=== PATIENT | male | born 2000 | race Caucasian/White ===

== ENCOUNTER 2020-01-22 03:39 | Emergency (ER) | payer SELFPAY ==
[2020-01-22] MEDS ORDERED: NORMAL SALINE 1000 ML 1,000 ML IV ONE (04:50)
[2020-01-22] MEDS ORDERED: ONDANSETRON HCL INJ/PF 4 MG/2 ML SDV IV ONE (04:50)
--- NOTE | 2020-01-22 04:53 | ER Document Report ---
ED General - General Chief Complaint: ETOH Abuse Stated Complaint: ETOH Time Seen by Provider: 01/22/20 04:23 Mode of Arrival: Ambulatory Information source: Patient Notes: 19-year-old male with no previous medical problems presents to the emergency room after slipping in the bathroom on his vomit hitting his head on the edge of the toilet with questionable loss of consciousness. Patient states he had an argument with his ex-boyfriend was drinking at his brother's house when he started vomiting. Unknown amount of alcohol. Denies any suicidal homicidal ideation. States he got in a fight with his brother as well because his brother told him he is now older than to be drinking. States he rarely drinks any alcohol. Does not know what he was drinking. Complaining of a headache with nausea and vomiting. TRAVEL OUTSIDE OF THE [place] IN LAST 30 DAYS: No - Related Data Allergies/Adverse Reactions: aloe Allergy (Verified 01/22/20 04:05) Past Medical History - General Information source: Patient - Social History Smoking Status: Never Smoker Frequency of alcohol use: Occasional Drug Abuse: None Family History: Reviewed & Not Pertinent Patient has homicidal ideation: No Psychiatric Medical History: Reports: Hx Bipolar Disorder Past Surgical History: Reports: Hx Oral Surgery, Hx Orthopedic Surgery - hand Review of Systems - Review of Systems Constitutional: No symptoms reported EENT: No symptoms reported Cardiovascular: No symptoms reported Respiratory: No symptoms reported Gastrointestinal: Nausea, Vomiting. denies: Abdominal pain, Diarrhea Musculoskeletal: No symptoms reported Skin: No symptoms reported Neurological/Psychological: Headaches -: Yes All other systems reviewed and negative Physical Exam - Vital signs Vitals: Temp Pulse Resp BP Pulse Ox 97.8 F 102 H 18 118/74 98 01/22/20 03:46 01/22/20 03:46 01/22/20 03:46 01/22/20 03:46 01/22/20 03:46 - General General appearance: Appears well, Alert In distress: Mild - HEENT Head: Normocephalic, Other - Small hematoma to the right lateral aspect of the head.. No: Mcmullen's sign, Racoon's eyes Eyes: Normal Conjunctiva: Normal Pupils: PERRL Ears: Normal External canal: Normal Sinus: Normal Nasal: Normal Mucous membranes: Normal Pharynx: Normal Neck: Normal - Respiratory Respiratory status: No respiratory distress Chest status: Nontender Breath sounds: Normal Chest palpation: Normal - Cardiovascular Rhythm: Tachycardia Heart sounds: Normal auscultation Murmur: No Gallop: None auscultated - Abdominal Inspection: Normal Distension: No distension Bowel sounds: Normal Tenderness: Nontender Organomegaly: No organomegaly - Neurological Neuro grossly intact: Yes Cognition: Normal Orientation: AAOx4 [place] Coma Scale Eye Opening: Spontaneous [place] Coma Scale Verbal: Oriented [place] Coma Scale Motor: Obeys Commands [place] Coma Scale Total: 15 Speech: Normal Motor strength normal: LUE, RUE, LLE, RLE Sensory: Normal - Skin Skin Temperature: Warm Skin Moisture: Dry Skin Color: Normal Course - Re-evaluation Re-evalutation: 01/22/2020 05:15 Presentation of head trauma in an otherwise well-appearing patient. No focal neurologic deficits on exam, no evidence of basilar skull fracture on exam without evidence of hemotympanum, raccoon eyes, or periauricular hematoma. No papilledema. Patient is not on anticoagulation. GCS is 15. There was positive of consciousness. Multiple episodes of vomiting. Patient is therefore positive via [place]oan head CT criteria and CT imaging will be obtained at this time. 01/22/20 06:36 Patient is resting comfortably. He is able to tolerate p.o. fluids. Denies pain. Reviewed lab and CT results with patient and family. Counseled to rest at home today, drink plenty of fluids today. Zofran as needed for nausea. Outpatient follow-up with a primary care physician if not improving in 2 to 3 days. You have been provided with an on-call physician. Patient was given strict return to the emergency room guidelines. Return for any new or worsening symptoms. All questions were answered. Patient verbalized understanding and agrees with plan of care. 01/22/20 06:59 - Vital Signs Vital signs: Temp Pulse Resp BP Pulse Ox 98.5 F 68 14 110/64 100 01/22/20 06:46 01/22/20 06:46 01/22/20 06:46 01/22/20 06:46 01/22/20 06:46 - Laboratory Result Diagrams: 01/22/20 05:15 01/22/20 05:15 Laboratory results interpreted by me: 01/22/20 05:15 Salicylates < 1.0 L Acetaminophen < 10 L - Diagnostic Test Radiology reviewed: Reports reviewed Discharge - Discharge Clinical Impression: ETOH abuse Head injury Qualifiers: Encounter type: initial encounter Qualified Code(s): S09.90XA - Unspecified injury of head, initial encounter Nausea and vomiting Qualifiers: Vomiting type: unspecified Vomiting Intractability: non-intractable Qualified Code(s): R11.2 - Nausea with vomiting, unspecified Condition: Stable Disposition: HOME, SELF-CARE Instructions: Acute Alcohol Intoxication ([facility]), Antinausea Medication ([facility]), Head Injury Precautions ([facility]), Vomiting ([facility]) Additional Instructions: Home and rest the remainder of today. Tylenol as needed for pain. Zofran as needed for nausea. Drink plenty of water. Outpatient follow-up with her primary care physician if not improving in 2 to 3 days. Return to the emergency room for any new or worsening symptoms.
[2020-01-22 05:41] LABS: ABSOLUTE LYMPHOCYTES (AUTO) 2.1 10^3/uL (0.5-4.7); ABSOLUTE MONOCYTES (AUTO) 0.4 10^3/uL (0.1-1.4); ABSOLUTE NEUT (AUTO) 2.8 10^3/uL (1.7-8.2); BASOPHILS % (AUTO) 0.7 % (0-2); EOSINOPHILS % (AUTO) 0.7 % (0-6); HEMOGLOBIN 15.4 g/dL (13.5-17.0); LYMPHOCYTES % (AUTO) 39.7 % (13-45); MEAN CORPUSCULAR HEMOGLOBIN 30.1 pg (27.0-33.4); MEAN CORPUSCULAR HGB CONC 35.7 g/dL (32.0-36.0); MEAN CORPUSCULAR VOLUME 84 fl (80-97); MONOCYTES % (AUTO) 6.8 % (3-13); PLATELET COUNT 187 10^3/uL (150-450); RED CELL DISTRIBUTION WIDTH 12.9 % (11.5-14.0); SEGMENTED NEUTROPHILS % (AUTO) 52.1 % (42-78); TOTAL CELLS COUNTED % (AUTO) 100 %; WHITE BLOOD COUNT 5.3 10^3/uL (4.0-10.5)
--- NOTE | 2020-01-22 05:44 | RADIOLOGY REPORT (SQ) ---
CLINICAL HISTORY: trauma COMPARISON: None. TECHNIQUE: CT HEAD WITHOUT IV CONTRAST on 01/22/2020 4:48 AM CDT This exam was performed according to our departmental dose-optimization program, which includes automated exposure control, adjustment of the mA and/or kV according to patient size and/or use of iterative reconstruction technique. FINDINGS: There is no acute hemorrhage, mass effect or midline shift. Renee-white differentiation is preserved. There is no hydrocephalus. There is no significant volume loss for age. The calvarium is intact. Orbits and globes are unremarkable. The paranasal sinuses are clear. Mastoid air cells are clear. IMPRESSION: No acute intracranial findings.
--- NOTE | 2020-01-22 05:44 | RADIOLOGY REPORT (SQ) ---
EXAM DESCRIPTION: CT CERVICAL SPINE WITHOUT IV CONTRAST COMPLETED DATE/TME: 01/22/2020 04:49 CLINICAL HISTORY: 19 years, Male, trauma COMPARISON: None. TECHNIQUE: Axial CT images of the cervical spine were obtained without contrast. Sagittal and coronal reformats were performed. DLP 201 Images stored on PACS. All CT scanners at this facility use dose modulation, iterative reconstruction, and/or weight based dosing when appropriate to reduce radiation dose to as low as reasonably achievable (ALARA). [facility]: Dose Right [facility]: CareDose [facility]: Dose Right [facility]: Teradose 4D [facility]: [employer] LIMITATIONS: None. FINDINGS: The alignment of the cervical spine is satisfactory. There is no acute fracture or subluxation. The vertebral heights and disc spaces are maintained. The odontoid process and craniocervical junction are intact. The prevertebral soft tissues are normal. No significant spinal canal stenosis or neural foraminal narrowing at any level. Visualized lung apices are clear. IMPRESSION: No acute fracture or subluxation TECHNICAL DOCUMENTATION: Quality ID # [id number]: Final reports with documentation of one or more dose reduction techniques (e.g., Automated exposure control, adjustment of the mA and/or kV according to patient size, use of iterative reconstruction technique) copyright 2010 [employer]- All Rights Reserved
[2020-01-22 05:45] LABS: APPEARANCE,URINE CLEAR; BILIRUBIN,URINE NEGATIVE (NEGATIVE); COLOR,URINE COLORLESS; GLUCOSE, URINE NEGATIVE (NEGATIVE); KETONES,URINE NEGATIVE (NEGATIVE); LEUKOCYTE ESTERASE,URINE NEGATIVE (NEGATIVE); NITRITE,URINE NEGATIVE (NEGATIVE); PROTEIN,URINE NEGATIVE (NEGATIVE); URINE SPECIFIC GRAVITY 1.002; UROBILINOGEN,URINE NEGATIVE mg/dL (<2.0)
[2020-01-22 06:00] LABS: URINE AMPHETAMINES SCREEN NEGATIVE; URINE BARBITURATES SCREEN NEGATIVE; URINE BENZODIAZEPINES SCREEN NEGATIVE; URINE COCAINE SCREEN NEGATIVE; URINE MARIJUANA (THC) SCREEN NEGATIVE; URINE METHADONE SCREEN NEGATIVE; URINE PHENCYCLIDINE SCREEN NEGATIVE
[2020-01-22 06:01] LABS: ALBUMIN 4.7 g/dL (3.5-5.0); ALCOHOL 79 mg/dL (NONE DETECTED); ALKALINE PHOSPHATASE 82 U/L (38-126); ANION GAP 12 (5-19); ASPARTATE AMINO TRANSFERASE 28 U/L (17-59); BILIRUBIN,DIRECT 0.2 mg/dL (0.0-0.4); BILIRUBIN,TOTAL 0.6 mg/dL (0.2-1.3); BLOOD UREA NITROGEN 8 mg/dL (7-20); CALCIUM 9.7 mg/dL (8.4-10.2); CARBON DIOXIDE 25 mmol/L (22-30); CHLORIDE 107 mmol/L (98-107); GLUCOSE 103 mg/dL (75-110); POTASSIUM 4.5 mmol/L (3.6-5.0); TOTAL PROTEIN 7.4 g/dL (6.3-8.2)
[2020-01-22 06:04] LABS: ACETAMINOPHEN < 10 ug/mL (10-30); SALICYLATE < 1.0 mg/dL (2.0-20.0)
[2020-01-22] MEDS ORDERED: ONDANSETRON ODT 4 MG TAB (6 TAB/ER DISP) PO PRN (06:37)
[2020-01-22 06:46] VITALS: BP 110/64
== END 2020-01-22 06:46 | disposition home or self-care (01) ==
LOC: ER 03:39
DX: S00.83XA Contusion of other part of head, initial encounter (principal); W01.198A Fall on same level from slipping, tripping and stumbling with subsequent striking against other object, initial encounter; Y93.89 Activity, other specified; Y92.002 Bathroom of unspecified non-institutional (private) residence as the place of occurrence of the external cause; F10.10 Alcohol abuse, uncomplicated; R51 Headache; R11.2 Nausea with vomiting, unspecified; Z91.048 Other nonmedicinal substance allergy status
CPT/HCPCS: 99285; 96361; 96374; 36415; 80307 ×4; 85025; 80053; 81001; 70450; 72125; J2405; J7030